=== PATIENT | male | born 1975 | race Caucasian/White ===

== ENCOUNTER 2016-12-26 12:08 | Emergency (ER) | payer OTHER ==
--- NOTE | 2016-12-26 13:54 | RAD ---
Indication: XII nerve palsy. CT of the brain was performed without IV contrast. Ventricular structures are midline. No midline shift is noted. The extraction spaces are unremarkable. There is no evidence of intracranial mass or hemorrhage. No other high or low density lesions are identified. Mastoid air cells and paranasal sinuses are otherwise unremarkable. IMPRESSION: No intracranial mass or hemorrhage is noted.
[2016-12-26 14:30] LABS: Hematocrit 41 % (42-52); Mean Corpuscular HGB Conc 35 g/dl (31-36); Mean Corpuscular Hemoglobin 33 pg (27-31); Mean Corpuscular Volume 96 fL (80-94); Mean Platelet Volume 8 um3 (7.4-10.4); Red Blood Count 4.23 10^6/ul (4.0-5.4); Red Cell Distribution Width 13 % (10.5-15)
[2016-12-26 14:35] LABS: ALT 22 U/L (7-52); Alkaline Phosphatase 81 U/L (34-104); BUN/Creatinine Ratio 21.2 (8-20); Blood Urea Nitrogen 11 mg/dL (6-24); CO2 Carbon Dioxide 23 mmol/L (22-32); Calcium 8.9 mg/dL (8.6-10.3); Chloride 107 mmol/L (101-111); Cholesterol 171 mg/dL; EGFR African American 225.2 (>60); EGFR Non-African American 175.1 (>60); Globulin 3.2 g/dL (2-4); Glucose 111 mg/dL (70-100); LDL Cholesterol 109 mg/dL; Sodium 136 mmol/L (133-145); Total Protein 7.2 g/dL (6.4-8.9); Triglycerides 115 mg/dL
[2016-12-26 14:55] LABS: Alcohol < 10 mg/dL (<10)
[2016-12-26 14:59] LABS: Anion Gap 6 mmol/L (2-11)
[2016-12-26] MEDS ORDERED: ALPRAZolam TAB* 0.25 MG PO ONE (15:16)
--- NOTE | 2016-12-26 16:48 | RAD ---
Indication: Tongue deviates to the LEFT. Mouth pain for one week. LEFT arm weakness. History of atrial fibrillation; on Xarelto. Comparison: December 26, [address] Technique: DocbookMDa 1.5 Gabrielle [id number] with GEM suite. MRI brain without contrast. Report: Diffusion series is negative for acute or subacute ischemia. Susceptibility series is negative for stigmata of hemosiderin deposition to indicate previous hemorrhage. Unremarkable cerebral sulci, ventricles, and basal cisterns. Normal patterns of signal intensity throughout the cerebrum and posterior fossa. No intra or extra-axial lesions or fluid collections evident. Preserved major intracranial flow voids. Unremarkable orbital contents. No suspicious calvarial or skull base lesion evident. Negative for paranasal sinus fluid levels. At the caudal margin of the [id number] there is suggestion of asymmetric edema at the LEFT oropharynx mucosal space. Correlate with clinical assessment. IMPRESSION: 1. Normal noncontrast MRI of the brain. 2. At the caudal margin of the [id number] there is suggestion of asymmetric edema at the LEFT oropharynx mucosal space. Correlate with clinical assessment.
[2016-12-26 17:31] LABS: Benzodiazepine Urine Screen Presumptive Positive (None Detect)
[2016-12-26 18:02] VITALS: BP 115/94
--- NOTE | 2016-12-27 02:18 | ED ---
Savanah Acosta Edward, scribed for Shaneka Yu MD on 12/26/16 at 1401 . Neurological HPI - HPI Summary HPI Summary: 41 y/o male presents to the ED c/o sudden onset tongue deviating to the L starting on 12/19/16; pt woke up with the tongue deviation that day. Pt has had trouble swallowing and has trouble talking due to the tongue deviation. Pt first c/o dental pain described as a toothache at his R side lower jaw two days before the tongue deviation started. Pt c/o throat pain on 12/18/16. For the last few weeks, the pt also has had intermittent R eye blurred vision. Associated sx: numbness @ R side forehead, L arm weakness, neck "floppiness". PMHx AFIB. Sx R shoulder surgery, bilateral knee surgery. Past medications reviewed on visit - Metropolol, Sotalol, Xarelto. FHx grandmother - MS, grandfather - heart disease. - History of Current Complaint Chief Complaint: EDGeneral Stated Complaint: DIFF SWALLOWING/SLURRED SPEACH Time Seen by Provider: 12/26/16 12:54 Hx Obtained From: Patient Onset/Duration: Started weeks ago Timing: Constant Neurological Deficit Location: Facial - Tongue deviation Character: Numbness/Tingling - R side forehead, Motor Weakness - L arm, Visual Changes, Other: - tongue deviation Aggravating: Nothing Alleviating: Nothing Associated Signs and Symptoms: Positive: Visual Changes - R side blurred vision , Weakness - L arm, Pain - Dental pain, throat pain, Numbness - R side forehead - Allergy/Home Medications Allergies/Adverse Reactions: Allergies Allergy/AdvReac Type Severity Reaction Status Date / Time Prednisone Allergy Intermediate MENTAL Verified 12/26/16 12:17 CHANGES Moxifloxacin [From Avelox] AdvReac Intermediate bloody Verified 12/26/16 12:17 nose, watery eyes PMH/Surg Hx/FS Hx/Imm Hx Previously Healthy: No Cardiovascular History: Reports: Hx Angina - ABNORMAL STRESS TEST, Hx Atrial Fibrillation, Hx Hypertension - ON MEDS Denies: Hx Pacemaker/ICD, Other Cardiovascular Problems/Disorders Respiratory History: Reports: Hx Sleep Apnea GI History: Reports: Hx Gastroesophageal Reflux Disease - ON MEDS, Hx Hiatal Hernia Denies: Other GI Disorders Musculoskeletal History: Reports: Hx Arthritis - BACK, Hx Tendonitis - RIGHT KNEE Denies: Other Musculoskeletal History Sensory History: Reports: Hx Contacts or Glasses - GLASSES Denies: Hx Hearing Aid Opthamlomology History: Reports: Hx Contacts or Glasses - GLASSES Neurological History: Denies: Other Neuro Impairments/Disorders Psychiatric History: Reports: Hx Anxiety - ON MEDS Denies: Hx Panic Disorder - Surgical History Surgery Procedure, Year, and Place: RT SHOULDER 01/29 AT [facility] [place]. LEFT KNEE, 08/2010 , [facility] [place]. RIGHT FOREARM, 1996, [facility]. APPENDECTOMY, 1985, [facility]. RIGHT KNEE SURGERY JAN 2014 Hx Anesthesia Reactions: No Infectious Disease History: No Infectious Disease History: Denies: Traveled Outside the [place] in Last 30 Days - Family History Known Family History: Positive: Cardiac Disease - Grandfather, Other - Grandmother - MS - Social History Alcohol Use: Weekly Alcohol Amount: 24 PER WEEK Substance Use Type: Reports: None Smoking Status (MU): Heavy Every Day Tobacco Smoker Type: Cigarettes Amount Used/How Often: PACK A DAY Have You Smoked in the Last Year: Yes Review of Systems Constitutional: Negative Eyes: Negative Positive: Dental Pain, Sore Throat Cardiovascular: Negative Respiratory: Negative Gastrointestinal: Negative Genitourinary: Negative Musculoskeletal: Negative Neurological: Other - Blurred vision @ r eye. Tongue deviation to the L. Neck "floppiness" Positive: Weakness - L arm, Numbness - R forehead Psychological: Normal All Other Systems Reviewed And Are Negative: Yes Physical Exam - Summary Physical Exam Summary: Appearance: Well-appearing, no pain distress, Well-nourished Skin: Warm, color reflects adequate perfusion Head: Normal Head/Face Eyes: Conjunctiva clear ENT: Normal Neck: Supple Respiratory: Lungs clear, Normal breath sounds, no respiratory distress Cardio: RRR, No murmur, pulses normal, brisk capillary refill Abdomen: soft, nontender Bowel sounds: present Musculoskeletal: Strength Intact/ ROM intact Neuro: Alert, muscle tone normal, facial symmetry, tongue deviates to the L, dysarthria, technician trainee equal, Motor function 5/5, Sensations intact, Gait WNL. Negative: speech normal, CN II-XII intact, sensory/motor intact Triage Information Reviewed: Yes Vital Signs On Initial Exam: Initial Vitals Temp Pulse Resp BP Pulse Ox 98.6 F 55 18 174/99 99 12/26/16 12:11 12/26/16 12:11 12/26/16 12:11 12/26/16 12:11 12/26/16 12:11 Vital Signs Reviewed: Yes Diagnostics - Vital Signs Vital Signs Temp Pulse Resp BP Pulse Ox 12/26/16 13:40 97.9 F 54 19 166/90 100 12/26/16 12:11 98.6 F 55 18 174/99 99 - Laboratory Lab Results: Lab Results 12/26/16 12/26/16 12/26/16 Range/Units 14:10 14:10 14:19 WBC 9.0 (3.5-10.8) 10^3/ul RBC 4.23 (4.0-5.4) 10^6/ul Hgb 14.0 (14.0-18.0) g/dl Hct 41 L (42-52) % MCV 96 H (80-94) fL MCH 33 H (27-31) pg MCHC 35 (31-36) g/dl RDW 13 (10.5-15) % Plt Count 226 (150-450) 10^3/ul MPV 8 (7.4-10.4) um3 Neut % (Auto) 58.8 (38-83) % Lymph % (Auto) 28.4 (25-47) % [place] % (Auto) 5.7 (1-9) % Eos % (Auto) 6.0 (0-6) % Baso % (Auto) 1.1 (0-2) % Absolute Neuts (auto) 5.3 (1.5-7.7) 10^3/ul Absolute Lymphs (auto) 2.6 (1.0-4.8) 10^3/ul Absolute Monos (auto) 0.5 (0-0.8) 10^3/ul Absolute Eos (auto) 0.5 (0-0.6) 10^3/ul Absolute Basos (auto) 0.1 (0-0.2) 10^3/ul Absolute Nucleated RBC 0 10^3/ul Nucleated RBC % 0 INR (Anticoag Therapy) 1.06 (0.89-1.11) APTT 27.1 (26.0-36.3) seconds Sodium 136 (133-145) mmol/L Potassium TNP Chloride 107 (101-111) mmol/L Carbon Dioxide 23 (22-32) mmol/L Anion Gap 6 (2-11) mmol/L BUN 11 (6-24) mg/dL Creatinine 0.52 L (0.67-1.17) mg/dL Est GFR ( Amer) 225.2 (>60) Est GFR (Non-Af Amer) 175.1 (>60) BUN/Creatinine Ratio 21.2 H (8-20) Glucose 111 H (70-100) mg/dL Lactic Acid (0.5-2.0) mmol/L Calcium 8.9 (8.6-10.3) mg/dL Total Bilirubin 0.40 (0.2-1.0) mg/dL AST TNP ALT 22 (7-52) U/L Alkaline Phosphatase 81 (34-104) U/L Troponin I 0.00 (<0.04) ng/mL Total Protein 7.2 (6.4-8.9) g/dL Albumin 4.0 (3.2-5.2) g/dL Globulin 3.2 (2-4) g/dL Albumin/Globulin Ratio 1.3 (1-3) Triglycerides 115 mg/dL Cholesterol 171 mg/dL LDL Cholesterol 109 mg/dL HDL Cholesterol 39.0 mg/dL Urine Opiates Screen (None Detect) Ur Barbiturates Screen (None Detect) Ur Phencyclidine Scrn (None Detect) Ur Amphetamines Screen (None Detect) U Benzodiazepines Scrn (None Detect) Urine Cocaine Screen (None Detect) U Cannabinoids Screen (None Detect) Serum Alcohol < 10 (<10) mg/dL 12/26/16 12/26/16 Range/Units 14:19 17:01 WBC (3.5-10.8) 10^3/ul RBC (4.0-5.4) 10^6/ul Hgb (14.0-18.0) g/dl Hct (42-52) % MCV (80-94) fL MCH (27-31) pg MCHC (31-36) g/dl RDW (10.5-15) % Plt Count (150-450) 10^3/ul MPV (7.4-10.4) um3 Neut % (Auto) (38-83) % Lymph % (Auto) (25-47) % [place] % (Auto) (1-9) % Eos % (Auto) (0-6) % Baso % (Auto) (0-2) % Absolute Neuts (auto) (1.5-7.7) 10^3/ul Absolute Lymphs (auto) (1.0-4.8) 10^3/ul Absolute Monos (auto) (0-0.8) 10^3/ul Absolute Eos (auto) (0-0.6) 10^3/ul Absolute Basos (auto) (0-0.2) 10^3/ul Absolute Nucleated RBC 10^3/ul Nucleated RBC % INR (Anticoag Therapy) (0.89-1.11) APTT (26.0-36.3) seconds Sodium (133-145) mmol/L Potassium Chloride (101-111) mmol/L Carbon Dioxide (22-32) mmol/L Anion Gap (2-11) mmol/L BUN (6-24) mg/dL Creatinine (0.67-1.17) mg/dL Est GFR ( Amer) (>60) Est GFR (Non-Af Amer) (>60) BUN/Creatinine Ratio (8-20) Glucose (70-100) mg/dL Lactic Acid 1.0 (0.5-2.0) mmol/L Calcium (8.6-10.3) mg/dL Total Bilirubin (0.2-1.0) mg/dL AST ALT (7-52) U/L Alkaline Phosphatase (34-104) U/L Troponin I (<0.04) ng/mL Total Protein (6.4-8.9) g/dL Albumin (3.2-5.2) g/dL Globulin (2-4) g/dL Albumin/Globulin Ratio (1-3) Triglycerides mg/dL Cholesterol mg/dL LDL Cholesterol mg/dL HDL Cholesterol mg/dL Urine Opiates Screen None detected (None Detect) Ur Barbiturates Screen None detected (None Detect) Ur Phencyclidine Scrn None detected (None Detect) Ur Amphetamines Screen None detected (None Detect) U Benzodiazepines Scrn Presumptive positive H (None Detect) Urine Cocaine Screen None detected (None Detect) U Cannabinoids Screen None detected (None Detect) Serum Alcohol (<10) mg/dL Result Diagrams: 12/26/16 14:19 12/26/16 14:10 Lab Statement: Any lab studies that have been ordered have been reviewed, and results considered in the medical decision making process. - CT BRAIN CT CT Interpretation: No Acute Changes - No intracranial mass or hemorrhage is noted. CT Interpretation Completed By: Radiologist - Additional Comments Diagnostic Additional Comments: EKG - 14:17 - Sinus Bradycardia @ 46 BPM. Normal AV, IV, and QTC. Normal axis. No acute changes. No prior EKG to compare. BRAIN MRI - 1. Normal noncontrast MRI of the brain. 2. At the caudal margin of the [id number] there is suggestion of asymmetric edema at the LEFT oropharynx mucosal space. Correlate with clinical assessment. Re-Evaluation - Re-Evaluation 1 Re-Evaluation Time: 17:45 Comment: Discuss MRI results and plan of care Course/Dx - Course Assessment/Plan: 41 y/o male presents to the ED c/o sudden onset tongue deviating to the L starting on 12/19/16; pt woke up with the tongue deviation that day. Pt has had trouble swallowing and has trouble talking due to the tongue deviation. Pt first c/o dental pain described as a toothache at his R side lower jaw two days before the tongue deviation started. Pt c/o throat pain on 12/18/16. For the last few weeks, the pt also has had intermittent R eye blurred vision. Associated sx: numbness @ R side forehead, L arm weakness, neck "floppiness". PMHx AFIB. Sx R shoulder surgery, bilateral knee surgery. Past medications reviewed on visit - Metropolol, Sotalol, Xarelto. FHx grandmother - MS, grandfather - heart disease. BRAIN CT SHOWS No intracranial mass or hemorrhage is noted. EKG - 14:17 - Sinus Bradycardia @ 46 BPM. Normal AV, IV, and QTC. Normal axis. No acute changes. No prior EKG to compare. Spoke with Dr. Arriaza who recommends MRI brain without contrast. BRAIN MRI SHOWS 1. Normal noncontrast MRI of the brain. 2. At the caudal margin of the [id number] there is suggestion of asymmetric edema at the LEFT oropharynx mucosal space. Correlate with clinical assessment. Informed Dr. Arriaza of MRI results at 17:17, who suggests neurological workup is complete. Recommends we consult with ENT. Discussed case with Dr. Pedersen at 17:35. Dr. Pedersen recommends d/c with f/u at his office, and that we give abx if necessary. - Diagnoses Provider Diagnoses: Tongue swelling, Tongue deviation, Dysarthria - Physician Notifications Discussed Care Of Patient With: Arlene Arriaza Time Discussed With Above Provider: 14:47 Instructed by Provider To: Other - MRI brain without contrast Discharge - Discharge Plan Condition: Stable Disposition: HOME Prescriptions: Clindamycin Cap(NF) [Clindamycin Cap 300 mg Cap(NF)] 300 mg PO Q6H #40 cap Patient Education Materials: Toothache (ED) Referrals: Sonny Pedersen MD [Medical Doctor] - 3 Days (PLEASE FOLLOW UP IN 2-3 DAYS) Additional Instructions: MRI RESULTS NORMAL EXCEPT FOR SWELLING AT THE BASE OF YOUR TONGUE ON THE LEFT. RETURN TO THE ED FOR RETURN OR WORSENING OF SYMPTOMS The documentation as recorded by the Savanah faustin Edward accurately reflects the service I personally performed and the decisions made by , Shaneka Yu MD.
== END 2016-12-26 18:20 | disposition home or self-care (01) ==
LOC: ED 12:08
DX: R22.0 Localized swelling, mass and lump, head (principal); K14.8 Other diseases of tongue; R47.1 Dysarthria and anarthria
CPT/HCPCS: 36415; 70450; 70551; 80053; 80061; 80307; 80320; 83605; 84484; 85025; 85610; 85730; 93005; 99282; A9270-GY; G0480

== ENCOUNTER 2018-10-19 14:45 | Emergency (ER) | payer SELFPAY ==
[2018-10-19] MEDS ORDERED: hydrALAZINE IV* 20 MG/ML VIAL IV SLOW PU ONE (14:58)
--- NOTE | 2018-10-19 14:59 | ED ---
Dizziness - HPI Summary HPI Summary: The patient is a 43 y/o M arriving by ambulance to [facility] with a chief complaint of gradual onset dizziness and confusion this morning. He reports that he has been medication noncompliant with Effexor (last was one week ago) and Xarelto due to an insurance complication causing him to only take them when he feels he needs to, which has caused his BP to elevated when it is usually 140/80. This resulted in the development of mid-sternal CP that doesnt radiate to the back. He additionally reports blurred vision and an episode of nausea yesterday with similar symptoms of feeling off. He states he last took the BP medication last night. His pain is currently rated 4/10 in severity. He denies any fevers, chills, erythema of eyes, sore throat, SOB, cough, abdominal pain, N/V, dysuria , hematuria, myalgia, edema, or rash. PMHx: afib, angina, HTN, GERD, anxiety. FHx of cardiac disease. Heavy every day cigarette smoker, weekly EtOH, no substance use. - History Of Current Complaint Stated Complaint: DIZZY,POSS WITHDRAWL FROM MEDS PER EMS Hx Obtained From: Patient Onset/Duration: Still Present, Gradually Timing: Hours Severity Initially: Mild Severity Currently: Moderate Character: Dizzy Aggravating Factor(s): Nothing Alleviating Factor(s): Nothing Associated Signs And Symptoms: Positive: Chest Pain, Other: - POSITIVE: confusion; NEGATIVE: erythema of eyes, sore throat, SOB, cough, abdominal pain, N/V, dysuria, hematuria, myalgia, edema, rash. Negative: Nausea, Vomiting, SOB , Fever, Chills - Allergies/Home Medications Allergies/Adverse Reactions: Allergies Allergy/AdvReac Type Severity Reaction Status Date / Time moxifloxacin Allergy Intermediate Bleeding Verified 10/19/18 15:31 prednisone Allergy Intermediate Altered Verified 10/19/18 15:31 Mental Status Home Medications: Home Medications Gabapentin CAP(*) [Neurontin 300 CAP(*)] 300 mg PO TID 10/19/18 [History Confirmed 10/19/18] Lisinopril/HCTZ 20/25(NF) [Zestoretic 20/25(NF)] 2 tab PO DAILY 10/19/18 [ History Confirmed 10/19/18] Metoprolol Succinate XL TAB* [Toprol XL TAB*] 25 mg PO DAILY 10/19/18 [History Confirmed 10/19/18] Sotalol TAB* [Betapace 80 MG TAB*] 160 mg PO BID 10/19/18 [History Confirmed 05/08] traMADol TAB* [Ultram*] 50 - 100 mg PO Q6HR PRN 10/19/18 [History Confirmed 05/08] traZODone TAB* [Desyrel TAB*] 50 - 150 mg PO BEDTIME 10/19/18 [History Confirmed 10/19/18] PMH/Surg Hx/FS Hx/Imm Hx Endocrine/Hematology History: Denies: Hx Diabetes Cardiovascular History: Reports: Hx Angina - ABNORMAL STRESS TEST, Hx Atrial Fibrillation, Hx Hypertension - ON MEDS Denies: Hx Pacemaker/ICD, Other Cardiovascular Problems/Disorders Respiratory History: Reports: Hx Sleep Apnea GI History: Reports: Hx Gastroesophageal Reflux Disease - ON MEDS, Hx Hiatal Hernia Denies: Other GI Disorders Musculoskeletal History: Reports: Hx Arthritis - BACK, Hx Tendonitis - RIGHT KNEE Denies: Other Musculoskeletal History Sensory History: Reports: Hx Contacts or Glasses - GLASSES Denies: Hx Hearing Aid Opthamlomology History: Reports: Hx Contacts or Glasses - GLASSES Neurological History: Denies: Other Neuro Impairments/Disorders Psychiatric History: Reports: Hx Anxiety - ON MEDS Denies: Hx Panic Disorder - Surgical History Surgery Procedure, Year, and Place: RT SHOULDER 01/29 [place] [facility] [place]. [place], 08/2010 , [facility] [place] RIGHT FOREARM, 1996, [facility]. APPENDECTOMY, 1985, [facility]. RIGHT KNEE SURGERY JAN 2014 Hx Anesthesia Reactions: No - Family History Known Family History: Positive: Cardiac Disease - Grandfather, Other - Grandmother - MS - Social History Alcohol Use: Weekly Alcohol Amount: 24 PER WEEK Hx Substance Use: No Substance Use Type: Reports: None Hx Tobacco Use: Yes Smoking Status (MU): Heavy Every Day Tobacco Smoker Type: Cigarettes Amount Used/How Often: PACK A DAY Have You Smoked in the Last Year: Yes Review of Systems Negative: Fever, Chills Positive: Blurred Vision. Negative: Drainage Negative: Sore Throat Positive: Chest Pain - mid-sternal Negative: Shortness Of Breath, Cough Positive: Nausea - resolved. Negative: Abdominal Pain, Vomiting Negative: dysuria, hematuria Negative: Myalgia, Edema Negative: Rash Neurological: Other - dizziness, confusion Negative: Headache All Other Systems Reviewed And Are Negative: Yes Physical Exam - Summary Physical Exam Summary: Constitutional: Well-developed, Well-nourished, Alert. (-) Distressed Skin: Warm, Dry HENT: Normocephalic; Atraumatic Eyes: Conjunctiva normal Neck: Musculoskeletal ROM normal neck. (-) JVD, (-) Stridor, (-) Tracheal deviation Cardio: Rhythm regular, rate normal, Heart sounds normal; Intact distal pulses; The pedal pulses are 2+ and symmetric. Radial pulses are 2+ and symmetric. (-) Murmur Pulmonary/Chest wall: Effort normal. (-) Respiratory distress, (-) Wheezes, (-) Rales Abd: Soft, (-) tenderness, (-) Distension, (-) Guarding, (-) Rebound Musculoskeletal: (-) Edema Lymph: (-) Cervical adenopathy Neuro: Alert, Oriented x3 Psych: Mood and affect Normal Triage Information Reviewed: Yes Vital Signs Reviewed: Yes Diagnostics - Laboratory Result Diagrams: 10/19/18 15:01 10/19/18 15:01 Lab Statement: Any lab studies that have been ordered have been reviewed, and results considered in the medical decision making process. - EKG 1449 Cardiac Rate: NL - 61 bpm EKG Rhythm: Sinus Rhythm Summary of EKG Findings: NSR at 61 bpm. No STEMI. Re-Evaluation - Re-Evaluation First Eval Re-Evaluation Time: 18:40 Comment: The patient would like to leave AMA. We discussed the risks for leaving including myocardial infarction, kidney failure, and stroke. He would still like to leave AMA. Dizzy Course/Dx - Diagnoses Provider Diagnoses: Hypertensive emergency, Medication withdrawal - Provider Notifications Discussed Care Of Patient With: Evelyn Kerns - hospitalist Time Discussed With Above Provider: 17:30 Instructed by Provider To: Other - Dr. Kerns accepts the patient for admission. At 1800, Radha Geller NP, reports that the patient would like to leave AMA. Discharge - Sign-Out/Discharge Documenting (check all that apply): Patient Departure - Patient will leave AMA. Patient Received Moderate/Deep Sedation with Procedure: No - Discharge Plan Condition: Stable Disposition: AGAINST MEDICAL ADVICE Prescriptions: Venlafaxine TAB (NF) [Effexor TAB (NF)] 100 mg PO TID #90 tab Patient Education Materials: Hypertension (ED) Referrals: Gómez Byrd MD [Primary Care Provider] - Additional Instructions: Please take medication as prescribed. Follow up with your primary care provider in 2-3 days. RETURN TO THE EMERGENCY DEPARTMENT FOR ANY NEW OR WORSENING SYMPTOMS. - Billing Disposition and Condition Condition: STABLE Disposition: Against Medical Advice - Attestation Statements Document Initiated by Scribe: Yes Documenting Scribe: Willow Ashby Provider For Whom Cassie is Documenting (Include Credential): Dr. Jack Bhandari MD Scribe Attestation: Willow Acosta scribed for Dr. Jack Bhandari MD on 10/19/18 at 1935. Status of Scribe Document: Viewed
[2018-10-19 15:22] LABS: INR 1.18 (0.82-1.09)
[2018-10-19 15:26] LABS: Albumin 4.1 g/dL (3.2-5.2); Albumin/Globulin Ratio 1.3 (1-3); BUN/Creatinine Ratio 17.2 (8-20); Calcium 9.2 mg/dL (8.6-10.3); EGFR African American 165.2 (>60); EGFR Non-African American 136.5 (>60); Globulin 3.2 g/dL (2-4); Potassium 3.8 mmol/L (3.5-5.0); Total Bilirubin 0.8 mg/dL (0.2-1.0); Total Protein 7.3 g/dL (6.4-8.9)
[2018-10-19 15:38] LABS: ABS Basophils 0.1 10^3/ul (0-0.2); ABS Lymphocytes 2.9 10^3/ul (1.0-4.8); ABS Monocytes 0.6 10^3/ul (0-0.8); ABS Neutrophils 4.5 10^3/ul (1.5-7.7); Hematocrit 40 % (42-52); Hemoglobin 14.9 g/dL (14.0-18.0); Lymphocyte % 35.8 %; Mean Corpuscular HGB Conc 37 g/dL (31-36); Mean Corpuscular Hemoglobin 36 pg (27-31); Mean Corpuscular Volume 97 fL (80-94); Mean Platelet Volume 7.8 fL (7.4-10.4); Nucleated Red Blood Cells % 0.2; Platelet Count 178 10^3/uL (150-450); Red Blood Count 4.16 10^6 /uL (4.18-5.48); Red Cell Distribution Width 13 % (10-15); White Blood Count 8.1 10^3/uL (3.5-10.8)
[2018-10-19] MEDS ORDERED: Hydrochlorothiazide TAB* 50 MG PO ONE (17:38)
[2018-10-19] MEDS ORDERED: ALPRAZolam TAB* 0.5 MG PO ONE (18:14)
--- NOTE | 2018-10-19 18:57 | PN ---
Hospitalist Progress Note Date of Service: 10/19/[address] Bhandari to see the patient for dizziness and hypertension. Patient was seen in the ER and refused to be admitted. Patient reports that he feels his symptoms are related to effexor withdrawal and anxiety. Patient was advised of $[address] [facility], as patient reports that his anxiety was related to not being able to afford his medications due to loss of insurance. Dr. Bhandari was updated will discharge the patient from the Emergency room and provide discharge instructions.
[2018-10-19] MEDS ORDERED: Hydrochlorothiazide TAB* 25 MG PO ONE (19:00)
[2018-10-19 19:28] VITALS: BP 143/82
== END 2018-10-19 19:28 | disposition left against medical advice (07) ==
LOC: ED 14:45
DX: I16.1 Hypertensive emergency (principal); F19.939 Other psychoactive substance use, unspecified with withdrawal, unspecified; F17.210 Nicotine dependence, cigarettes, uncomplicated; Z88.1 Allergy status to other antibiotic agents; Z88.8 Allergy status to other drugs, medicaments and biological substances; Z79.899 Other long term (current) drug therapy; I48.91 Unspecified atrial fibrillation; I10 Essential (primary) hypertension; I20.9 Angina pectoris, unspecified; K21.9 Gastro-esophageal reflux disease without esophagitis
CPT/HCPCS: 36415; 80053; 84484; 85025; 85610; 93005; 96374; 99283; A9270-GY; J0360

== ENCOUNTER 2021-03-10 22:35 | Inpatient (IN) ==
[2021-03-10] MEDS ORDERED: Metoprolol Tartrate 5 mg VIAL 5 ml VIAL (1 mg/ml) IV ONE (23:25)
[2021-03-10 23:36] LABS: INR 1.29 (0.86-1.15)
[2021-03-10 23:43] LABS: Alcohol, S 250 mg/dL (<13)
[2021-03-10 23:44] LABS: ALT 36 U/L (7-52); Albumin 2.7 g/dL (3.2-5.2); Albumin/Globulin Ratio 0.6 (1-3); Alkaline Phosphatase 314 U/L (35-149); Blood Urea Nitrogen 17 mg/dL (6-24); CO2 Carbon Dioxide 19 mmol/L (22-32); Calcium 8.1 mg/dL (8.6-10.3); Chloride 109 mmol/L (101-111); Globulin 4.3 g/dL (2-4); Glucose 90 mg/dL (70-100); Magnesium 1.5 mg/dL (1.9-2.7); Sodium 137 mmol/L (135-145); eGFR CKD-EPI 89.2 (>60)
[2021-03-10 23:45] LABS: Troponin I 0.01 ng/mL (<0.03)
[2021-03-10 23:52] LABS: Hematocrit 25 % (42-52); Hemoglobin 8.2 g/dL (14.0-18.0); Mean Corpuscular HGB Conc 34 g/dL (31-36); Mean Corpuscular Hemoglobin 38 pg (27-31); Mean Corpuscular Volume 113 fL (80-94); Mean Platelet Volume 8.4 fL (7.4-10.4); Platelet Count 142 10^3/uL (150-450); Red Blood Count 2.18 10^6 /uL (4.18-5.48); Red Cell Distribution Width 19 % (10-15); White Blood Count 7.2 10^3/uL (3.5-10.8)
[2021-03-10 23:54] LABS: T4, Total 11.42 mcg/dL (6.09-12.23)
[2021-03-10] MEDS ORDERED: Lactated Ringers 1000 ml BAG 1,000 ML IV ONE (23:55)
[2021-03-10 23:58] LABS: TSH Ultra Thyroid Stim Horm 6.92 mcIU/mL (0.34-5.60)
[2021-03-11 00:19] LABS: ABS Basophils 0.1 10^3/ul (0-0.2); ABS Lymphocytes 2.2 10^3/ul (1.0-4.8); ABS Monocytes 0.7 10^3/ul (0-0.8); ABS Neutrophils 4.2 10^3/ul (1.5-7.7); Macrocytosis 1+; Nucleated Red Blood Cells % 0.2
[2021-03-11 00:22] LABS: Anisocytosis 1+; Target Cells 1+
[2021-03-11 00:39] LABS: AST 118 U/L (13-39); Anion Gap 9 mmol/L (2-11); Potassium 4.4 mmol/L (3.5-5.0)
[2021-03-11] MEDS ORDERED: Pantoprazole VIAL 40 MG VIAL IV ONE (00:41)
[2021-03-11] MEDS ORDERED: Iohexol 350 (CONTRAST) 500 ML MDV IV ONE (00:48)
[2021-03-11 01:22] LABS: Indirect Bilirubin 1.4 mg/dL (0.3-1.0)
[2021-03-11] MEDS ORDERED: Magnesium Sulfate 2 gm BAG 2 GM/50 ML BAG IVPB ONE (01:37)
[2021-03-11] MEDS ORDERED: NS 0.9% 1000 ml BAG 1,000 ML IV SCH ×2 (02:30→18:47)
[2021-03-11] MEDS: Metoprolol Tartrate 5 mg VIAL 5 ml VIAL (1 mg/ml) IV SCH ×2 (03:18→08:43)
[2021-03-11] MEDS: Pantoprazole 80 mg in NS BAG 80 MG/250 ML BAG IV SCH ×2 (03:19→14:58)
[2021-03-11 03:26] LABS: Hematocrit 22 % (42-52); Hemoglobin 7.3 g/dL (14.0-18.0)
[2021-03-11 03:31] LABS: Folate 12.45 ng/mL (5.90-24.80)
[2021-03-11 03:32] LABS: Vitamin B12 > 1450 pg/mL (180-914)
[2021-03-11] MEDS ORDERED: cefTRIAXone 1 gm/50 mL NS BAG 1 GM/50 ML BAG IV ONE (06:46)
[2021-03-11] MEDS ORDERED: Octreotide Acetate 50 MCG in NS 0.9% 50 ML 50 ML IV ONE (06:48)
[2021-03-11 09:23] LABS: Calcium 7.8 mg/dL (8.6-10.3); Potassium 4.1 mmol/L (3.5-5.0); eGFR CKD-EPI 103.2 (>60)
[2021-03-11 09:37] LABS: Hematocrit 23 % (42-52); Hemoglobin 7.8 g/dL (14.0-18.0); Mean Corpuscular HGB Conc 34 g/dL (31-36); Mean Corpuscular Hemoglobin 38 pg (27-31); Mean Corpuscular Volume 113 fL (80-94); Mean Platelet Volume 8.2 fL (7.4-10.4); Platelet Count 135 10^3/uL (150-450); Red Blood Count 2.04 10^6 /uL (4.18-5.48); Red Cell Distribution Width 19 % (10-15); White Blood Count 5.7 10^3/uL (3.5-10.8)
[2021-03-11] MEDS ORDERED: Folic Acid IV 1 MG in NS 0.9% 50 ML 50 ML IV ONE (09:48)
[2021-03-11] MEDS ORDERED: Thiamine 100 MG/ML 2 ml VIAL 250 MG in NS 0.9% 100 ml BAG 100 ML IV SCH (10:00)
[2021-03-11] MEDS: Octreotide Acetate 500 MCG in NS 0.9% 100 ml BAG 100 ML IV SCH (10:31)
[2021-03-11] MEDS: CMCS:Venlafaxine 25 mg TAB (NF) PO SCH ×2 (10:32→15:02)
[2021-03-11] MEDS ORDERED: Metoprolol Tartrate 5 mg VIAL 5 ml VIAL (1 mg/ml) IV PRN (10:56)
[2021-03-11] MEDS ORDERED: NS 0.9% 1000 ml BAG 1,000 ML IV ONE (12:01)
[2021-03-11] MEDS ORDERED: Digoxin IV 0.5 MG/2 ML AMP (0.25 MG/ML) IV SLOW PU ONE (12:15)
[2021-03-11] MEDS: Mometasone/Formoter 200/5 MDI INH SCH ×2 (14:57→19:23)
[2021-03-11] MEDS ORDERED: Digoxin IV 0.5 MG/2 ML AMP (0.25 MG/ML) IV SLOW PU SCH (18:00)
[2021-03-11] MEDS ORDERED: Piperacillin/Tazobac ADVAN 3.375 GM in NS 0.9% 100 ml BAG 100 ML IV ONE (18:42)
[2021-03-11] MEDS ORDERED: Lactated Ringers 500 ml BAG 500 ML IV ONE (18:51)
[2021-03-11] MEDS ORDERED: Zosyn per Pharmacy NOTE FOLLOW UP SCH ×2 (19:00)
[2021-03-11 23:03] LABS: Hepatitis B Surface Antigen Nonreactive (Nonreactive)
[2021-03-11 23:08] LABS: Hepatitis A Ab IgM Negative (Negative); Hepatitis B Core IgM Nonreactive (Nonreactive)
[2021-03-11 23:20] LABS: Hepatitis C Antibody Negative (Negative)
[2021-03-12] MEDS: CMCS:Venlafaxine 25 mg TAB (NF) PO SCH ×4 (01:02→20:16)
[2021-03-12] MEDS: ZOSYN 3.375 GM Q8H per EXTENDED INFUSION IV SCH ×2 (01:57→12:10)
[2021-03-12] MEDS: Pantoprazole 80 mg in NS BAG 80 MG/250 ML BAG IV SCH ×3 (01:57→22:41)
[2021-03-12 06:34] LABS: ABS Basophils 0.1 10^3/ul (0-0.2); ABS Lymphocytes 1.8 10^3/ul (1.0-4.8); ABS Monocytes 0.8 10^3/ul (0-0.8); Calcium 7.2 mg/dL (8.6-10.3); Hematocrit 20 % (42-52); Hemoglobin 6.6 g/dL (14.0-18.0); Lymphocyte % 31.5 %; Mean Corpuscular HGB Conc 33 g/dL (31-36); Mean Corpuscular Hemoglobin 37 pg (27-31); Mean Corpuscular Volume 114 fL (80-94); Mean Platelet Volume 8.2 fL (7.4-10.4); Nucleated Red Blood Cells % 0.3; Platelet Count 104 10^3/uL (150-450); Potassium 4.1 mmol/L (3.5-5.0); Red Blood Count 1.76 10^6 /uL (4.18-5.48); Red Cell Distribution Width 19 % (10-15); White Blood Count 5.7 10^3/uL (3.5-10.8); eGFR CKD-EPI 95.7 (>60)
[2021-03-12] MEDS ORDERED: cefTRIAXone 1 gm/50 mL NS BAG 1 GM/50 ML BAG IVPB SCH (07:00)
[2021-03-12] MEDS: Mometasone/Formoter 200/5 MDI INH SCH ×2 (08:09→19:54)
[2021-03-12] MEDS ORDERED: Perflutren Lipid Microsphere 3 ML VIAL ONE (09:43)
[2021-03-12] MEDS: Nicotine PATCH 14 MG/24 HR PATCH TRANSDERM SCH (11:37)
[2021-03-12] MEDS ORDERED: Ondansetron 4 mg VIAL 2 MG/ML 2 ml VIAL ONE (12:45)
[2021-03-12] MEDS ORDERED: Rocuronium 50 mg VIAL 10 mg/ml 5 ml VIAL (50 mg) ONE (12:45)
[2021-03-12] MEDS ORDERED: Midazolam 2 mg/2 ml VIAL 1 mg/ml 2 ml VIAL (2 mg) ONE (12:45)
[2021-03-12] MEDS ORDERED: Lidocaine 2% PF 5 ML VIAL ONE (12:45)
[2021-03-12] MEDS ORDERED: Propofol 10 MG/ML 20 ML BTL ONE (12:45)
[2021-03-12] MEDS ORDERED: fentaNYL 100 mcg/2 ml 50 MCG/ML VIAL ONE (12:45)
[2021-03-12] MEDS ORDERED: Ketamine HCL 50 mg/ml 10 ml VIAL (500 MG) ONE (14:36)
[2021-03-12] MEDS ORDERED: LORazepam 2 mg VIAL 1 ml IV PUSH SCH (17:00)
[2021-03-12] MEDS ORDERED: Nicotine GUM 4MG FRUIT FLAVOR PO PRN (17:12)
[2021-03-12] MEDS: Octreotide Acetate 500 MCG in NS 0.9% 100 ml BAG 100 ML IV SCH (17:45)
[2021-03-12] MEDS: Multivitamins/Minerals TAB PO SCH (17:45)
[2021-03-13] MEDS: ZOSYN 3.375 GM Q8H per EXTENDED INFUSION IV SCH ×2 (02:26→08:32)
[2021-03-13 03:11] LABS: Urine Appearance Cloudy; Urine Bilirubin Negative (Negative); Urine Blood Negative (Negative); Urine Color Amber; Urine Glucose Negative (Negative); Urine Ketones Negative (Negative); Urine Nitrite Negative (Negative); Urine Protein 1+(30 mg/dL) (Negative); Urine Specific Gravity 1.028 (1.002-1.030); Urine Urobilinogen Negative (Negative)
[2021-03-13 03:14] LABS: Urine Bacteria Absent (Absent); Urine Red Blood Cell 1+(3-5/hpf) (Absent); Urine Squamous Epithelial Cell Present (Absent); Urine White Blood Cell Trace(0-5/hpf) (Absent)
[2021-03-13] MEDS: Octreotide Acetate 500 MCG in NS 0.9% 100 ml BAG 100 ML IV SCH (04:08)
[2021-03-13 04:40] LABS: Calcium 7.7 mg/dL (8.6-10.3); Potassium 4.3 mmol/L (3.5-5.0); eGFR CKD-EPI 77.5 (>60)
[2021-03-13 04:54] LABS: ABS Basophils 0.1 10^3/ul (0-0.2); ABS Lymphocytes 1.4 10^3/ul (1.0-4.8); ABS Monocytes 0.7 10^3/ul (0-0.8); ABS Neutrophils 3.1 10^3/ul (1.5-7.7); Hematocrit 27 % (42-52); Lymphocyte % 25.9 %; Mean Corpuscular HGB Conc 33 g/dL (31-36); Mean Corpuscular Hemoglobin 36 pg (27-31); Mean Corpuscular Volume 107 fL (80-94); Mean Platelet Volume 8.4 fL (7.4-10.4); Platelet Count 95 10^3/uL (150-450); RBC Morphology Normal (Normal); Red Blood Count 2.54 10^6 /uL (4.18-5.48); Red Cell Distribution Width 23 % (10-15); White Blood Count 5.2 10^3/uL (3.5-10.8)
[2021-03-13] MEDS: Mometasone/Formoter 200/5 MDI INH SCH (07:38)
[2021-03-13] MEDS: Multivitamins/Minerals TAB PO SCH (08:35)
[2021-03-13] MEDS: Nicotine PATCH 14 MG/24 HR PATCH TRANSDERM SCH (08:35)
[2021-03-13] MEDS: CMCS:Venlafaxine 25 mg TAB (NF) PO SCH (08:40)
[2021-03-13] MEDS: Pantoprazole 80 mg in NS BAG 80 MG/250 ML BAG IV SCH (09:46)
[2021-03-13 11:49] VITALS: BP 119/72
[2021-03-14 11:57] LABS: % Iron Saturation 49 % (14 - 50); Total Iron Binding Capacity 139 mcg/dL (250 - 400)
[2021-03-14 12:01] LABS: Ceruloplasmin 24.4 mg/dL
[2021-03-15 20:44] LABS: Mitochondria M2 Antibody <0.1 U
== END 2021-03-13 12:35 | disposition left against medical advice (07) | DRG 253 ==
LOC: ED 22:35 → SUATTDRO 03-11 02:23 → EDHOLD 03-11 02:23 → MEDTELE 03-11 14:29
PROVIDERS: ADMIT Hospitalist; ATTEND Internal Medicine

== ENCOUNTER 2021-04-01 09:07 | Inpatient (IN) ==
[2021-04-01] MEDS ORDERED: Dextrose 50% Syringe 50 ml 25 GM/50 ML SYRINGE IV PUSH ONE (09:13)
[2021-04-01 09:33] LABS: Hematocrit 27 % (42-52); Hemoglobin 9.3 g/dL (14.0-18.0); Mean Corpuscular HGB Conc 35 g/dL (31-36); Mean Corpuscular Hemoglobin 36 pg (27-31); Mean Corpuscular Volume 104 fL (80-94); Mean Platelet Volume 9.4 fL (7.4-10.4); Platelet Count 77 10^3/uL (150-450); Red Cell Distribution Width 21 % (10-15); White Blood Count 3.7 10^3/uL (3.5-10.8)
[2021-04-01 09:38] LABS: INR 1.92 (0.86-1.15)
[2021-04-01 09:45] LABS: PCO2 Arterial 27 mmHg (35-45); PO2 Arterial 103 mmHg (80-100)
[2021-04-01 09:47] LABS: Albumin 2.4 g/dL (3.2-5.2); Albumin/Globulin Ratio 0.5 (1-3); Calcium 7.5 mg/dL (8.6-10.3); Globulin 4.4 g/dL (2-4); Potassium 3.4 mmol/L (3.5-5.0); Total Protein 6.8 g/dL (6.4-8.9); eGFR CKD-EPI 67.4 (>60)
[2021-04-01] MEDS ORDERED: Succinylcholine 200 mg VIAL 20 mg/ml 10 ml VIAL (200 mg) ONE ×2 (09:48→10:24)
[2021-04-01] MEDS ORDERED: Rocuronium 50 mg VIAL 10 mg/ml 5 ml VIAL (50 mg) ONE ×2 (09:48→10:24)
[2021-04-01] MEDS ORDERED: Propofol 10 mg/ml 100 ML BTL 100 ML IV ONE (09:48)
[2021-04-01] MEDS ORDERED: Piperacillin/Tazobac ADVAN 3.375 GM in NS 0.9% 100 ml BAG 100 ML IV ONE ×2 (09:52→19:59)
[2021-04-01] MEDS ORDERED: Vancomycin 1,500 MG in NS 0.9% 250 ml 250 ML IVPB ONE (09:52)
[2021-04-01] MEDS ORDERED: Lactated Ringers 1000 ml BAG 1,000 ML IV ONE (09:53)
[2021-04-01 09:55] LABS: ABS Lymphocytes 0.8 10^3/ul (1.0-4.8); ABS Monocytes 0.3 10^3/ul (0-0.8); ABS Neutrophils 2.5 10^3/ul (1.5-7.7); Eosinophil % 0.8 %; Lymphocyte % 22.2 %; Nucleated Red Blood Cells % 0.2
[2021-04-01 09:59] LABS: Macrocytosis 1+
[2021-04-01] MEDS ORDERED: D5LR 1000 ml BAG 1,000 ML IV ONE (10:19)
[2021-04-01] MEDS ORDERED: Midazolam 10 mg/10 ml VIAL 1 mg/ml 10 ml VIAL (10 mg) IV SLOW PU ONE ×2 (10:56→12:16)
[2021-04-01] MEDS ORDERED: Iohexol 300 (CONTRAST) 10 ML SDV IV ONE (11:35)
[2021-04-01] MEDS ORDERED: Octreotide Acetate 50 MCG in NS 0.9% 50 ML 50 ML IV ONE (11:41)
[2021-04-01] MEDS ORDERED: Etomidate 20 mg/10 ml 2 MG/ML 10 ml VIAL IV ONE (11:41)
[2021-04-01] MEDS ORDERED: Succinylcholine 200 mg VIAL 20 mg/ml 10 ml VIAL (200 mg) IV ONE (11:41)
[2021-04-01] MEDS ORDERED: Phytonadione SUBCUT/IM Adult 10 MG/ML AMP (IM or SQ not preferred route) IM ONE (11:45)
[2021-04-01] MEDS ORDERED: Propofol 10 mg/ml 100 ML BTL 100 ML IV SCH (12:00)
[2021-04-01] MEDS ORDERED: Octreotide Acetate 500 MCG in NS 0.9% 100 ml BAG 100 ML IV SCH (12:00)
[2021-04-01 12:24] LABS: Urine Appearance Clear; Urine Bilirubin Negative (Negative); Urine Blood Negative (Negative); Urine Color Amber; Urine Glucose Negative (Negative); Urine Ketones 1+ (Negative); Urine Nitrite Negative (Negative); Urine Protein 1+(30 mg/dL) (Negative); Urine Specific Gravity 1.015 (1.002-1.030); Urine Urobilinogen Positive (Negative)
[2021-04-01] MEDS ORDERED: Lactulose 30 ml UDC NG TUBE ONE (12:29)
[2021-04-01] MEDS ORDERED: fentaNYL INFUSION 50 mcg/mL VL 2,500 MCG/50 ML VIAL IV SCH (13:00)
[2021-04-01 13:41] LABS: Magnesium 1.4 mg/dL (1.9-2.7); Phosphorus 2.4 mg/dL (2.5-5.0)
[2021-04-01 13:51] LABS: Urine Bacteria Absent (Absent); Urine Red Blood Cell Trace(0-2/hpf) (Absent); Urine Squamous Epithelial Cell Present (Absent); Urine White Blood Cell Trace(0-5/hpf) (Absent)
[2021-04-01] MEDS: Chlorhexidine MOUTHWASH 0.12% 15 ML UDC TOPICAL SCH ×4 (13:52→23:57)
[2021-04-01] MEDS ORDERED: Midazolam 5 mg/5 ml VIAL 1 mg/ml 5 ml VIAL (5 mg) IV SLOW PU ONE (13:54)
[2021-04-01] MEDS ORDERED: Midazolam 5 mg/5 ml VIAL 1 mg/ml 5 ml VIAL (5 mg) ONE (13:56)
[2021-04-01] MEDS: Pantoprazole 80 mg in NS BAG 80 MG/250 ML BAG IV SCH ×2 (14:32→14:54)
[2021-04-01] MEDS: Lactulose 30 ml UDC NG TUBE SCH ×3 (14:58→19:15)
[2021-04-01] MEDS ORDERED: Metoprolol Tartrate 5 mg VIAL 5 ml VIAL (1 mg/ml) ONE (15:01)
[2021-04-01] MEDS ORDERED: Metoprolol Tartrate 5 mg VIAL 5 ml VIAL (1 mg/ml) IV PRN (15:01)
[2021-04-01] MEDS ORDERED: Phytonadione 10 mg in 50 mL NS over 30 min IV ONE (15:30)
[2021-04-01] MEDS: KCL 20 MEQ/100 ML IVPREMIX 20 MEQ/100 ML BAG IV SCH ×4 (15:50→22:07)
[2021-04-01] MEDS ORDERED: Dextrose 50% Syringe 50 ml 25 GM/50 ML SYRINGE ONE (16:40)
[2021-04-01] MEDS ORDERED: Lactulose 300 ML for PR 200 GM/300 ML BTL PR SCH (17:00)
[2021-04-01] MEDS ORDERED: LORazepam 2 mg VIAL 1 ml ONE (17:42)
[2021-04-01] MEDS ORDERED: Lorazepam PYXIS KEY ONE (17:42)
[2021-04-01] MEDS: Lactulose 300 ML for PR 200 GM/300 ML BTL PR SCH ×2 (17:54→23:58)
[2021-04-01 18:07] LABS: ABS Lymphocytes 0.4 10^3/ul (1.0-4.8); ABS Monocytes 0.2 10^3/ul (0-0.8); ABS Neutrophils 2.5 10^3/ul (1.5-7.7); Eosinophil % 1.3 %; Hematocrit 23 % (42-52); Lymphocyte % 14.1 %; Mean Corpuscular HGB Conc 34 g/dL (31-36); Mean Corpuscular Hemoglobin 36 pg (27-31); Mean Corpuscular Volume 104 fL (80-94); Mean Platelet Volume 9.3 fL (7.4-10.4); Nucleated Red Blood Cells % 0.5; Platelet Count 65 10^3/uL (150-450); Red Blood Count 2.24 10^6 /uL (4.18-5.48); Red Cell Distribution Width 22 % (10-15); White Blood Count 3.1 10^3/uL (3.5-10.8)
[2021-04-01 18:09] LABS: Magnesium 1.2 mg/dL (1.9-2.7); Potassium 3.5 mmol/L (3.5-5.0); eGFR CKD-EPI 52.3 (>60)
[2021-04-01] MEDS ORDERED: fentaNYL 100 mcg/2 ml 50 MCG/ML VIAL IV SLOW PU ONE (18:11)
[2021-04-01] MEDS: Dexmedetomidine 1,000 MCG in NS 0.9% 250 ml 240 ML IV SCH (18:11)
[2021-04-01] MEDS ORDERED: fentaNYL 100 mcg/2 ml 50 MCG/ML VIAL ONE (18:13)
[2021-04-01] MEDS ORDERED: Norepinephrine 16MCG/ML BAG NS 4,000 MCG/250 ML BAG IV ONE (18:17)
[2021-04-01 18:29] LABS: Anisocytosis 3+; Macrocytosis 1+
[2021-04-01] MEDS ORDERED: Zosyn 3.375 gm X 1 dose, then dose per Pharmacy IV ONE (18:30)
[2021-04-01] MEDS ORDERED: Magnesium Sulf 4 GM/100 ML IV 4,000 MG/100 ML BAG IVPB ONE (18:46)
[2021-04-01] MEDS ORDERED: Norepinephrine 16MCG/ML BAG NS 4,000 MCG/250 ML BAG IV SCH (19:00)
[2021-04-01] MEDS ORDERED: Zosyn per Pharmacy NOTE FOLLOW UP SCH ×2 (19:00→20:00)
[2021-04-01] MEDS: Pantoprazole VIAL 40 MG VIAL IV SCH (19:16)
[2021-04-01] MEDS ORDERED: Lorazepam PYXIS KEY PRN (19:16)
[2021-04-01] MEDS ORDERED: LORazepam 2 mg VIAL 1 ml IV PUSH SCH (20:00)
[2021-04-01] MEDS: Midazolam 50 MG VIAL IV DRIP 50 ML IV SCH (20:03)
[2021-04-01] MEDS: Norepinephrine 16MCG/ML BAG NS 4,000 MCG/250 ML BAG IV SCH (21:08)
[2021-04-01 21:54] LABS: Hematocrit 24 % (42-52); Hemoglobin 8.1 g/dL (14.0-18.0); Mean Corpuscular HGB Conc 34 g/dL (31-36); Mean Corpuscular Hemoglobin 36 pg (27-31); Mean Corpuscular Volume 106 fL (80-94); Mean Platelet Volume 9.3 fL (7.4-10.4); Platelet Count 62 10^3/uL (150-450); Red Blood Count 2.27 10^6 /uL (4.18-5.48); Red Cell Distribution Width 21 % (10-15); White Blood Count 4.1 10^3/uL (3.5-10.8)
[2021-04-01 22:44] LABS: ABS Eosinophils 0.1 10^3/ul (0-0.6); ABS Lymphocytes 0.7 10^3/ul (1.0-4.8); ABS Monocytes 0.3 10^3/ul (0-0.8); ABS Neutrophils 3.1 10^3/ul (1.5-7.7); Eosinophil % 2.2 %; Lymphocyte % 17.3 %; Nucleated Red Blood Cells % 0.2
[2021-04-01] MEDS: Octreotide Acetate 500 MCG in NS 0.9% 100 ml BAG 100 ML IV SCH (23:58)
[2021-04-02] MEDS: Octreotide Acetate 500 MCG in NS 0.9% 100 ml BAG 100 ML IV SCH ×2 (00:16→09:37)
[2021-04-02] MEDS: PHENYLEPHRINE DRIP IVPREMIX 50 MG/250 ML BAG IV SCH ×4 (00:20→13:02)
[2021-04-02] MEDS: Norepinephrine 16MCG/ML BAG NS 4,000 MCG/250 ML BAG IV SCH ×2 (00:21→05:51)
[2021-04-02] MEDS: Dextrose 50% Syringe 50 ml 25 GM/50 ML SYRINGE IV PUSH PRN ×2 (00:35→04:44)
[2021-04-02 01:21] LABS: Albumin/Globulin Ratio 0.6 (1-3); Calcium 6.9 mg/dL (8.6-10.3); Globulin 3.6 g/dL (2-4); Magnesium 1.9 mg/dL (1.9-2.7); Potassium 4.2 mmol/L (3.5-5.0); Total Bilirubin 4.3 mg/dL (0.2-1.0); Total Protein 5.6 g/dL (6.4-8.9); eGFR CKD-EPI 40.4 (>60)
[2021-04-02] MEDS ORDERED: NS 0.9% 1000 ml BAG 1,000 ML IV ONE (02:31)
[2021-04-02] MEDS: ZOSYN 3.375 GM Q8H per EXTENDED INFUSION IV SCH ×2 (02:36→09:05)
[2021-04-02 03:24] LABS: PCO2 Arterial 27 mmHg (35-45); PO2 Arterial 69 mmHg (80-100)
[2021-04-02] MEDS ORDERED: Sodium Bicarbonate 8.4% VIAL 1 MEQ/ML 50 ml VIAL (50 meq) IV ONE (03:44)
[2021-04-02] MEDS: Chlorhexidine MOUTHWASH 0.12% 15 ML UDC TOPICAL SCH ×3 (04:16→12:20)
[2021-04-02] MEDS: Midazolam 50 MG VIAL IV DRIP 50 ML IV SCH (04:27)
[2021-04-02] MEDS: Dexmedetomidine 1,000 MCG in NS 0.9% 250 ml 240 ML IV SCH (04:44)
[2021-04-02 04:57] LABS: Hematocrit 24 % (42-52); Mean Corpuscular HGB Conc 33 g/dL (31-36); Mean Corpuscular Hemoglobin 36 pg (27-31); Mean Corpuscular Volume 107 fL (80-94); Mean Platelet Volume 9.5 fL (7.4-10.4); Platelet Count 62 10^3/uL (150-450); Red Blood Count 2.24 10^6 /uL (4.18-5.48); Red Cell Distribution Width 21 % (10-15); White Blood Count 6.2 10^3/uL (3.5-10.8)
[2021-04-02] MEDS ORDERED: D5W 1/2 NS 1000 ml BAG 1,000 ML IV SCH ×2 (05:00→08:29)
[2021-04-02 05:02] LABS: INR 2.49 (0.86-1.15)
[2021-04-02 05:03] LABS: Calcium 6.6 mg/dL (8.6-10.3); Magnesium 1.8 mg/dL (1.9-2.7); Phosphorus 3.1 mg/dL (2.5-5.0); Potassium 4.2 mmol/L (3.5-5.0); eGFR CKD-EPI 38.4 (>60)
[2021-04-02] MEDS ORDERED: CALCIUM GLUCONATE 1GM/50ML NS 1 GM/50 ML BAG IV ONE (05:29)
[2021-04-02] MEDS ORDERED: Magnesium Sulfate 2 gm BAG 2 GM/50 ML BAG IVPB ONE (05:30)
[2021-04-02] MEDS ORDERED: Norepinephrine *QUAD STRENGTH* 16 mg/250 mL NS per protocol IV SCH (08:00)
[2021-04-02] MEDS: Lactulose 30 ml UDC NG TUBE SCH ×2 (09:04→12:20)
[2021-04-02] MEDS: Pantoprazole VIAL 40 MG VIAL IV SCH (09:04)
[2021-04-02] MEDS: Lactulose 300 ML for PR 200 GM/300 ML BTL PR SCH ×2 (09:04→13:37)
[2021-04-02 09:50] LABS: Acetaminophen < 15 mcg/mL; Salicylate < 2.50 mg/dL (<30)
[2021-04-02] MEDS ORDERED: Thiamine 100 MG/ML 2 ml VIAL 100 MG, Folic Acid IV 1 MG, Multiple Vitamin IV ADULT 10 M... IV SCH (10:00)
[2021-04-02 10:24] LABS: Urine Benzodiazepine Screen Presumptive Positive (None Detect); Urine Cannabinoids Screen None Detected (None Detect); Urine Opiates Screen None Detected (None Detect)
[2021-04-02] MEDS ORDERED: Sodium Chloride CONC. 4 MEQ/ML 77 MEQ in D10W 1000 ml BAG 1,000 ML IV SCH (12:00)
[2021-04-02] MEDS ORDERED: D10W 1000 ML BAG 1000 ML IV SCH (12:00)
[2021-04-02] MEDS ORDERED: Sodium Bicarb 8.4% Vial 50 ML 150 MEQ in D5W 1000 ml BAG 850 ML IV SCH (12:00)
[2021-04-02 13:10] LABS: Calcium 6.8 mg/dL (8.6-10.3); Potassium 4.7 mmol/L (3.5-5.0)
[2021-04-02] MEDS ORDERED: Sodium Bicarbonate 8.4% SYR 50 ml SYRINGE ONE (15:16)
[2021-04-02 16:10] VITALS: BP 80/69
[2021-04-03] MEDS ORDERED: Thiamine IV 100 MG in NS 0.9% 50 ML Q24H IV SCH (09:00)
[2021-04-03] MEDS ORDERED: Multivitamins ADULT w/MIN LIQ 15 ML UDC NG TUBE SCH (09:00)
[2021-04-03] MEDS ORDERED: Folic Acid IV 1 MG in NS 0.9% 50 ML 50 ML IV ONE (09:00)
== END 2021-04-02 16:10 | disposition expired | DRG 280 ==
LOC: ED 09:07 → EDHOLD 11:28 → ICU 12:43
PROVIDERS: ADMIT Surgery Surgical Critical Care; ATTEND Surgery Surgical Critical Care